=== PATIENT | female | born 1985 | race Caucasian/White ===

== ENCOUNTER 2016-10-09 17:45 | Emergency (ER) | payer OTHER, BC ==
[~2016-10-09] VITALS: Ht 157.5 cm; Wt 88.6 kg
[~2016-10-09 17:45] MED LIST: AMBIEN5 MG PO; AMOXICILLIN500 MG PO; AMOXICILLIN875 MG OR; ATENOLOL50 MG OR; CELEXA10 MG PO; FLAGYL500 MG PO; FLEXERIL OR; FLEXERIL10 MG OR; FLEXERIL10 MG PO; HYDROCHLOROT25 MG PO; HYDROCHLOROTH12.5 MG OR; JOLESSA OR; LAMICTAL100 M1 PO; LAMICTAL150 M1 PO; LORTAB 1010 MG PO; LORTAB 5 OR; LORTAB 5/3255 MG PO; LORTAB 7.5 OR; NAPROSYN500 MG OR; NAPROSYN500 MG PO; NAPROXEN500 MG PO; PERCOCET 5/325M1 TAB PO; TENORMIN OR; TESSALON200 MG PO; TRAMADOL HCL50 MG PO; ULTRAM50 MG OR; ZITHROMAX250 MG PO; ZOFRAN ODT4 MG OR
[2016-10-09 20:01] LABS: URINE BILIRUBIN - DIPSTICK NEGATIVE (NEGATIVE); URINE BLOOD DIPSTICK MODERATE (NEGATIVE); URINE CLARITY CLEAR; URINE COLOR YELLOW; URINE GLUCOSE - DIPSTICK NEGATIVE (NEGATIVE); URINE KETONE 15 mg/dL (NEGATIVE); URINE LEUK ESTERASE NEGATIVE (Negative); URINE NITRITE - DIPSTICK NEGATIVE (Negative); URINE PH 5.5 (4.5-8.0); URINE PROTEIN - DIPSTICK NEGATIVE (NEG-TRACE); URINE SPECIFIC GRAVITY 1.025; URINE UROBILINOGEN - DIPSTICK 0.2 E.U./dL (0.2)
[2016-10-09 20:18] LABS: URINE BACTERIA FEW hpf; URINE SQUAMOUS EPITHELIAL CELL FEW EPI/hpf (0-FEW)
[2016-10-10 00:21] VITALS: BP 174/97
== END 2016-10-10 00:35 | disposition home or self-care (01) | DRG 605 ==
LOC: ED 17:45
PROVIDERS: Emergency Medicine
DX: S10.93XA Contusion of unspecified part of neck, initial encounter (principal); M25.561 Pain in right knee; S30.0XXA Contusion of lower back and pelvis, initial encounter; S80.02XA Contusion of left knee, initial encounter; S80.01XA Contusion of right knee, initial encounter; S90.01XA Contusion of right ankle, initial encounter; S20.212A Contusion of left front wall of thorax, initial encounter; S20.211A Contusion of right front wall of thorax, initial encounter; M54.2 Cervicalgia; M25.562 Pain in left knee; M25.571 Pain in right ankle and joints of right foot; S10.91XA Abrasion of unspecified part of neck, initial encounter; V49.40XA Driver injured in collision with unspecified motor vehicles in traffic accident, initial encounter; Y92.414 Local residential or business street as the place of occurrence of the external cause

== ENCOUNTER 2017-09-15 14:37 | Emergency (ER) | payer BC ==
[~2017-09-15] VITALS: Ht 157.5 cm; Wt 88.2 kg
[2017-09-15] MEDS ORDERED: TORADOL PO (17:20)
[2017-09-15] MEDS ORDERED: ZOFRAN4 MG/TAB PO (17:20)
[2017-09-15 17:35] VITALS: BP 168/90
== END 2017-09-15 17:40 | disposition home or self-care (01) | DRG 103 ==
LOC: ED 14:37
DX: R51 Headache (principal); E78.00 Pure hypercholesterolemia, unspecified; I10 Essential (primary) hypertension